=== PATIENT | female | born 1985 | race Caucasian/White ===

== ENCOUNTER 2019-10-28 13:23 | Observation (INO) | payer OTHER ==
[2019-10-28] MEDS ORDERED: KETOROLAC 30 MG/ML 1 ML VIAL IVP STA (14:11)
[2019-10-28] MEDS ORDERED: SODIUM CHLORIDE 0.9% 1,000 ML IV STA (14:11)
--- NOTE | 2019-10-28 14:24 | ED ---
General Adult HPI - General Chief complaint: Recheck/Abnormal Lab/Rx Stated complaint: Leg swelling, unable to urinate Time Seen by Provider: 10/28/19 13:59 Source: patient Mode of arrival: ambulatory Limitations: no limitations - History of Present Illness Initial comments: Patient is a 34-year-old female presenting to emergency Department with complai nts of lower leg swelling as well as abdominal pain and swelling for the past 2 days. Patient states she is an alcoholic and recently tried to stop drinking on her own. Patient states about 3-4 days ago she went to [facility] secondary to belly pain and was given a few prescriptions and was sent to [place]. Patient states the past few days both of her legs have begun to swell as well as her abdomen. She is also having right sided abdominal pain that is referred to her back. Patient states she has not been able to urinate since early this morning. She has been drinking water but still not able to urinate. Patient denies fever, vomiting, diarrhea. Patient states she does feel very weak. She denies any urinary complaints such as burning or frequency. She denies any history of abdominal surgeries. Her last bowel movement was yesterday was normal. She has no other complaints at this time. Upon arrival to the ER, vital signs are stable. - Related Data Allergies Allergy/AdvReac Type Severity Reaction Status Date / Time No Known Allergies Allergy Verified 10/28/19 13:29 Review of Systems ROS Statement: Those systems with pertinent positive or pertinent negative responses have been documented in the HPI. ROS Other: All systems not noted in ROS Statement are negative. Past Medical History Past Medical History: No Reported History History of Any Multi-Drug Resistant Organisms: None Reported Past Surgical History: Hernia Repair, Orthopedic Surgery Additional Past Surgical History / Comment(s): cyst removal Past Psychological History: No Psychological Hx Reported Smoking Status: Current every day smoker Past Alcohol Use History: Abuse Past Drug Use History: Marijuana General Exam - General Exam Comments Initial Comments: GENERAL: Patient appears fatigued, pain now, no acute distress. HEAD: Atraumatic, normocephalic. EYES: Pupils equal round and reactive to light, extraocular movements intact, sclera anicteric, conjunctiva are normal. ENT: TMs normal, nares patent, oropharynx clear without exudates. Moist mucous membranes. NECK: Normal range of motion, supple without lymphadenopathy or JVD. LUNGS: Breath sounds clear to auscultation bilaterally and equal. No wheezes rales or rhonchi. HEART: Regular rate and rhythm without murmurs, rubs or gallops. ABDOMEN: Severe tenderness to palpation right upper quadrant as well as right flank area. Abdomen appears slightly distended. Normoactive bowel sounds. No guarding, no rebound. No masses appreciated. : Deferred EXTREMITIES: Normal range of motion. No clubbing or cyanosis. Mild bilateral lower leg edema, no pitting edema. NEUROLOGICAL: Normal speech, normal gait. PSYCH: Normal mood, normal affect. SKIN: Warm, Dry, normal turgor, no rashes or lesions noted. Limitations: no limitations Course Vital Signs 10/28/19 13:27 Temperature 97.8 F Pulse Rate 81 Respiratory 18 Rate Blood Pressure 106/71 O2 Sat by Pulse 98 Oximetry Medical Decision Making - Medical Decision Making Patient is a 34-year-old female presenting with lower leg edema as well as abdominal swelling for the past 2 days. She is also not been able to urinate al l day today. Vital signs are stable upon arrival. Lab work reveals a total bilirubin of 4.3, AST is 93. Lipase is normal. Urine has 2+ bilirubins. Ultrasound of the liver shows solid appearing material within the gallbladder as well as thickening. Pericholeystic fluid, correlate for acute cholecystitis. I discussed these findings with the patient. She will be admitted for surgery consult and will be started on antibiotics. We will continue with pain control. She is in agreement with this plan of care. Dr. Ferro accepted the patient. Case discussed with Dr. Heard. - Lab Data Result diagrams: 10/28/19 14:30 10/28/19 14:30 Lab Results 10/28/19 10/28/19 10/28/19 Range/Units 14:30 14:30 14:30 WBC 4.1 (3.8-10.6) k/uL RBC 3.28 L (3.80-5.40) m/uL Hgb 11.2 L (11.4-16.0) gm/dL Hct 33.8 L (34.0-46.0) % MCV 103.0 H (80.0-100.0) fL MCH 34.1 (25.0-35.0) pg MCHC 33.1 (31.0-37.0) g/dL RDW 15.1 (11.5-15.5) % Plt Count 190 (150-450) k/uL Neutrophils % (Manual) 44 % Band Neutrophils % 1 % Lymphocytes % (Manual) 45 % Monocytes % (Manual) 8 % Eosinophils % (Manual) 2 % Neutrophils # (Manual) 1.80 (1.3-7.7) k/uL Lymphocytes # (Manual) 1.85 (1.0-4.8) k/uL Monocytes # (Manual) 0.33 (0-1.0) k/uL Eosinophils # (Manual) 0.08 (0-0.7) k/uL Nucleated RBCs 0 (0-0) /100 WBC Manual Slide Review Performed Polychromasia Present Macrocytosis Slight Target Cells Present PT 12.0 (9.0-12.0) sec INR 1.2 H (<1.2) APTT 22.9 (22.0-30.0) sec Sodium 136 L (137-145) mmol/L Potassium 4.0 (3.5-5.1) mmol/L Chloride 102 (98-107) mmol/L Carbon Dioxide 28 (22-30) mmol/L Anion Gap 6 mmol/L BUN 4 L (7-17) mg/dL Creatinine 0.46 L (0.52-1.04) mg/dL Est GFR (CKD-EPI)AfAm >90 (>60 ml/min/1.73 sqM) Est GFR (CKD-EPI)NonAf >90 (>60 ml/min/1.73 sqM) Glucose 94 (74-99) mg/dL Calcium 8.4 (8.4-10.2) mg/dL Magnesium 1.9 (1.6-2.3) mg/dL Total Bilirubin 4.3 H (0.2-1.3) mg/dL AST 93 H (14-36) U/L ALT 29 (4-34) U/L Alkaline Phosphatase 111 (38-126) U/L Total Protein 6.4 (6.3-8.2) g/dL Albumin 3.0 L (3.5-5.0) g/dL Amylase <30 L (30-110) U/L Lipase 68 (23-300) U/L Urine Color Urine Appearance (Clear) Urine pH (5.0-8.0) Ur Specific [place] (1.001-1.035) Urine Protein (Negative) Urine Glucose (UA) (Negative) Urine Ketones (Negative) Urine Blood (Negative) Urine Nitrite (Negative) Urine Bilirubin (Negative) Urine Urobilinogen (<2.0) mg/dL Ur Leukocyte Esterase (Negative) Urine RBC (0-5) /hpf Urine WBC (0-5) /hpf Ur Squamous Epith Cells (0-4) /hpf Hyaline Casts (0-2) /lpf Urine Mucus (None) /hpf Urine HCG, Qual (Not Detectd) 10/28/19 10/28/19 Range/Units 16:41 16:41 WBC (3.8-10.6) k/uL RBC (3.80-5.40) m/uL Hgb (11.4-16.0) gm/dL Hct (34.0-46.0) % MCV (80.0-100.0) fL MCH (25.0-35.0) pg MCHC (31.0-37.0) g/dL RDW (11.5-15.5) % Plt Count (150-450) k/uL Neutrophils % (Manual) % Band Neutrophils % % Lymphocytes % (Manual) % Monocytes % (Manual) % Eosinophils % (Manual) % Neutrophils # (Manual) (1.3-7.7) k/uL Lymphocytes # (Manual) (1.0-4.8) k/uL Monocytes # (Manual) (0-1.0) k/uL Eosinophils # (Manual) (0-0.7) k/uL Nucleated RBCs (0-0) /100 WBC Manual Slide Review Polychromasia Macrocytosis Target Cells PT (9.0-12.0) sec INR (<1.2) APTT (22.0-30.0) sec Sodium (137-145) mmol/L Potassium (3.5-5.1) mmol/L Chloride (98-107) mmol/L Carbon Dioxide (22-30) mmol/L Anion Gap mmol/L BUN (7-17) mg/dL Creatinine (0.52-1.04) mg/dL Est GFR (CKD-EPI)AfAm (>60 ml/min/1.73 sqM) Est GFR (CKD-EPI)NonAf (>60 ml/min/1.73 sqM) Glucose (74-99) mg/dL Calcium (8.4-10.2) mg/dL Magnesium (1.6-2.3) mg/dL Total Bilirubin (0.2-1.3) mg/dL AST (14-36) U/L ALT (4-34) U/L Alkaline Phosphatase (38-126) U/L Total Protein (6.3-8.2) g/dL Albumin (3.5-5.0) g/dL Amylase (30-110) U/L Lipase (23-300) U/L Urine Color Dark Brown Urine Appearance Cloudy H (Clear) Urine pH 5.5 (5.0-8.0) Ur Specific [place] 1.024 (1.001-1.035) Urine Protein 1+ H (Negative) Urine Glucose (UA) Negative (Negative) Urine Ketones Negative (Negative) Urine Blood Negative (Negative) Urine Nitrite Negative (Negative) Urine Bilirubin 2+ H (Negative) Urine Urobilinogen 3.0 (<2.0) mg/dL Ur Leukocyte Esterase Negative (Negative) Urine RBC 1 (0-5) /hpf Urine WBC 3 (0-5) /hpf Ur Squamous Epith Cells <1 (0-4) /hpf Hyaline Casts 22 H (0-2) /lpf Urine Mucus Many H (None) /hpf Urine HCG, Qual Not Detected (Not Detectd) Disposition Clinical Impression: Acute cholecystitis Disposition: ADMITTED IP TO THIS [facility] Condition: Good Is patient prescribed a controlled substance at d/c from ED?: No Referrals: None,Stated [Primary Care Provider] - 1-2 days Decision Date: 10/28/19 Decision Time: 16:54
[2019-10-28 14:57] LABS: ALT 29 U/L (4-34); AST 93 U/L (14-36); African American GFR (CKD) >90 (>60 ml/min/1.73 sqM); Alkaline Phosphatase 111 U/L (38-126); Anion Gap 6 mmol/L; Blood Urea Nitrogen 4 mg/dL (7-17); Calcium 8.4 mg/dL (8.4-10.2); Carbon Dioxide 28 mmol/L (22-30); Chloride 102 mmol/L (98-107); Glucose 94 mg/dL (74-99); Magnesium 1.9 mg/dL (1.6-2.3); Non-African American GFR(CKD) >90 (>60 ml/min/1.73 sqM); Sodium 136 mmol/L (137-145); Total Bilirubin 4.3 mg/dL (0.2-1.3); Total Protein 6.4 g/dL (6.3-8.2)
[2019-10-28 14:58] LABS: Amylase <30 U/L (30-110)
[2019-10-28 15:03] LABS: INR 1.2 (<1.2); Partial Thromboplastin Time 22.9 sec (22.0-30.0)
[2019-10-28 15:14] LABS: HCT 33.8 % (34.0-46.0); HGB 11.2 gm/dL (11.4-16.0); MCH 34.1 pg (25.0-35.0); MCHC 33.1 g/dL (31.0-37.0); Macrocytosis Slight; Mean Platelet Volume 10.7; Platelet Count 190 k/uL (150-450); RBC 3.28 m/uL (3.80-5.40); RDW 15.1 % (11.5-15.5); WBC 4.1 k/uL (3.8-10.6)
[2019-10-28 15:56] LABS: Band Neutrophils % 1 %; Eosinophils # (M) 0.08 k/uL (0-0.7); Lymphocytes # (M) 1.85 k/uL (1.0-4.8); Monocytes # (M) 0.33 k/uL (0-1.0); Neutrophils % (M) 44 %; Nucleated Red Blood Cells 0 /100 WBC (0-0); Target Cells Present; Total Cells Counted 100
[2019-10-28 15:57] LABS: Polychromasia Present
[2019-10-28] MEDS ORDERED: MORPHINE SULFATE 4 MG/ML SYRINGE IVP STA (16:09)
[2019-10-28] MEDS ORDERED: ONDANSETRON 4 MG/2 ML VIAL IVP STA (16:09)
--- NOTE | 2019-10-28 16:24 | US ---
EXAMINATION TYPE: US liver DATE OF EXAM: 10/28/2019 COMPARISON: NONE CLINICAL HISTORY: RUQ pain. EXAM MEASUREMENTS: Liver Length: 16.9 cm Gallbladder Wall: 0.9 cm CBD: 0.5 cm Right Kidney: 10.3 x 4.5 x 5.7 cm Pancreas: not well visualized Liver: difficult to penetrate. Gallbladder: thickened wall, pericholecystic fluid. Solid appearing material within gllblader. Evidence for sonographic Montero's sign: Yes CBD: wnl Right Kidney: No hydronephrosis or masses seen Incidental note of free fluid around liver. IMPRESSION: 1 solid appearing material within the gallbladder with wall thickening noted. Pericholecystic fluid a lso identified. Correlate for acute cholecystitis. 2. Probable fatty liver.
[2019-10-28 16:48] LABS: Appearance,Urine Cloudy (Clear); Bilirubin,Urine 2+ (Negative); Blood,Urine Negative (Negative); Color,Urine Dark Brown; Glucose,Urine (UA) Negative (Negative); Hyaline Casts,Urine 22 /lpf (0-2); Ketones,Urine Negative (Negative); Leukocyte Esterase,Urine Negative (Negative); Mucus,Urine Many /hpf; Nitrite,Urine Negative (Negative); PH, Urine 5.5 (5.0-8.0); Protein,Urine 1+ (Negative); RBC,Urine 1 /hpf (0-5); Specific Gravity,Urine 1.024 (1.001-1.035); Squamous Epithelial Cell,Urine <1 /hpf (0-4); WBC,Urine 3 /hpf (0-5)
[2019-10-28] MEDS ORDERED: NALOXONE 0.4 MG/ML 1 ML VIAL IV PRN (16:48)
[2019-10-28] MEDS ORDERED: ACETAMINOPHEN TAB 325 MG TAB PO PRN (16:48)
[2019-10-28] MEDS ORDERED: ONDANSETRON 4 MG/2 ML VIAL IVP PRN (16:48)
[2019-10-28] MEDS ORDERED: PIPERACILLIN-TAZOBACTAM 3.375 GM in SODIUM CHLORIDE 0.9% 100 ML IVPB STA (16:54)
[2019-10-28] MEDS: SODIUM CHLORIDE 0.9% 1,000 ML IV SCH (17:05)
[2019-10-28] MEDS ORDERED: SODIUM CHLORIDE 0.9% 500 ML 500 ML IV STA (18:05)
[2019-10-28] MEDS ORDERED: MORPHINE SULFATE 2 MG/ML SYRINGE IVP ONE (18:05)
[2019-10-28] MEDS: MORPHINE SULFATE 4 MG/ML SYRINGE IV PRN (21:35)
[2019-10-29] MEDS: PIPERACILLIN-TAZOBACTAM 3.375 GM in SODIUM CHLORIDE 0.9% 100 ML IVPB SCH ×3 (00:34→16:17)
[2019-10-29] MEDS: traMADol 50 MG TAB PO PRN ×3 (00:35→19:32)
[2019-10-29] MEDS: MORPHINE SULFATE 4 MG/ML SYRINGE IV PRN ×5 (02:27→21:32)
[2019-10-29] MEDS: SODIUM CHLORIDE 0.9% 1,000 ML IV SCH ×2 (05:37→21:00)
[2019-10-29 07:01] LABS: Basophils % (A) 1 %; Eosinophils # (A) 0.2 k/uL (0-0.7); Eosinophils % (A) 5 %; HCT 30.5 % (34.0-46.0); Hypochromasia Slight; Lymphocytes # (A) 1.4 k/uL (1.0-4.8); Lymphocytes % (A) 45 %; MCH 33.4 pg (25.0-35.0); MCHC 31.7 g/dL (31.0-37.0); MCV 105.1 fL (80.0-100.0); Macrocytosis Moderate; Mean Platelet Volume 9.5; Monocytes # (A) 0.3 k/uL (0-1.0); Monocytes % (A) 8 %; Neutrophils # (A) 1.1 k/uL (1.3-7.7); Neutrophils % (A) 37 %; Platelet Count 185 k/uL (150-450); RBC 2.91 m/uL (3.80-5.40); RDW 14.9 % (11.5-15.5); WBC 3.1 k/uL (3.8-10.6)
[2019-10-29 07:19] LABS: ALT 23 U/L (4-34); AST 81 U/L (14-36); African American GFR (CKD) >90 (>60 ml/min/1.73 sqM); Albumin 2.2 g/dL (3.5-5.0); Alkaline Phosphatase 82 U/L (38-126); Anion Gap 7 mmol/L; Blood Urea Nitrogen 3 mg/dL (7-17); Calcium 7.6 mg/dL (8.4-10.2); Carbon Dioxide 27 mmol/L (22-30); Chloride 106 mmol/L (98-107); Glucose 67 mg/dL (74-99); Non-African American GFR(CKD) >90 (>60 ml/min/1.73 sqM); Potassium 3.3 mmol/L (3.5-5.1); Sodium 140 mmol/L (137-145); Total Bilirubin 3.6 mg/dL (0.2-1.3)
[2019-10-29 07:24] LABS: HGB 9.7 gm/dL (11.4-16.0)
--- NOTE | 2019-10-29 10:19 | P.GSHP ---
History of Present Illness H&P Date: 10/29/19 Chief Complaint: abdominal pain CHIEF COMPLAINT: Abdominal pain HISTORY OF PRESENT ILLNESS: 34 year old female who presented to the ER with a chief complaint of abdominal pain. Patient reports she has been having abdominal pain on and off for the past few weeks. She initially related this pain to her liver as she has a history of alcohol abuse. Denies nausea or vomiting. Denies diarrhea or constipation. Denies fever or chills. Patient states she was recently at [facility] and underwent a medical detox. She is currently residing at [facility] for rehab. PAST MEDICAL HISTORY: See list. PAST SURGICAL HISTORY: See list. SOCIAL HISTORY: No illicit drug use. REVIEW OF SYSTEMS: CONSTITUTIONAL: Denies fever or chills. HEENT: Denies blurred vision, vision changes, or eye pain. Denies hemoptysis CARDIOVASCULAR: Denies chest pain or pressure. RESPIRATORY: No shortness of breath. GASTROINTESTINAL: Refer to HPI for pertinent findings HEMATOLOGIC: Denies bleeding disorders. GENITOURINARY: Denies any blood in urine. SKIN: Denies pruitis. Denies rash. PHYSICAL EXAM: VITAL SIGNS: Reviewed. GENERAL: Well-developed in no acute distress. HEENT: No sclera icterus. Extraocular movements grossly intact. Moist buccal mucosa. Head is atraumatic, normocephalic. ABDOMEN: Soft. Ascites present. Tenderness with palpation of right upper quadrant. NEUROLOGIC: Alert and oriented. Cranial nerves II through XII grossly intact. LABORATORY DATA: WBC 3.1. Hemoglobin 9.7. Platelet count 185. Potassium 3.3. BUN 3. Creatinine 0.54. Bilirubin 3.6. AST 81. ALT 23. IMAGING: Ultrasound liver: Solid-appearing material within the gallbladder with gallbladder wall thickening. Pericholecystic fluid present. ASSESSMENT: 1. Abdominal pain 2. Acute cholecystitis PLAN: NPO. Continue IV fluids. Continue IV antibiotics. Patient to undergo lap joel today with Dr. Ferro Nurse practitioner note has been reviewed by physician. Signing provider agrees with the documented findings, assessment, and plan of care. Past Medical History Past Medical History: No Reported History Additional Past Medical History / Comment(s): 3x hernia, cyst on cheek and behind left eye History of Any Multi-Drug Resistant Organisms: None Reported Past Surgical History: Hernia Repair, Orthopedic Surgery, Tubal Ligation Additional Past Surgical History / Comment(s): cyst removal, pins and plates in right leg Past Anesthesia/Blood Transfusion Reactions: No Reported Reaction Past Psychological History: No Psychological Hx Reported Smoking Status: Current every day smoker Past Alcohol Use History: Abuse Additional Past Alcohol Use History / Comment(s): started smoking at age 10 Past Drug Use History: Marijuana Medications and Allergies Home Medications Medication Instructions Recorded Confirmed Type Acetaminophen [Tylenol] 650 mg PO Q4H PRN 10/28/19 10/28/19 History Bisacodyl [Dulcolax] 5 mg PO BID PRN 10/28/19 10/28/19 History Chlorpheniramine Maleate 4 mg PO Q4H PRN 10/28/19 10/28/19 History [Chlor-Trimeton] Folic Acid 1 mg PO DAILY@0600 10/28/19 10/28/19 History Ibuprofen [Motrin] 600 mg PO Q6H PRN 10/28/19 10/28/19 History Loperamide [Imodium] 4 mg PO QID PRN 10/28/19 10/28/19 History Magnesium Hydroxide [Milk of 2,400 mg PO Q4H PRN 10/28/19 10/28/19 History Magnesia] Multivitamins, Thera [Multivitamin 1 tab PO DAILY@0600 10/28/19 10/28/19 History (formulary)] Ondansetron [Zofran ODT] 4 mg PO TID PRN 10/28/19 10/28/19 History Pantoprazole [Protonix] See Taper PO DIRECTED 10/28/19 10/28/19 History Thiamine [Vitamin B-1] 100 mg PO DAILY 10/28/19 10/28/19 History traZODone HCL 50 - 150 mg PO HS 10/28/19 10/28/19 History Allergies Allergy/AdvReac Type Severity Reaction Status Date / Time No Known Allergies Allergy Verified 10/28/19 18:10 Surgical - Exam Vital Signs Temp Pulse Resp BP Pulse Ox 97.8 F 81 18 106/71 98 10/28/19 13:27 10/28/19 13:27 10/28/19 13:27 10/28/19 13:27 10/28/19 13:27 Results - Labs 10/29/19 06:13 10/29/19 06:13 Abnormal Lab Results - Last 24 Hours (Table) 10/28/19 10/28/19 10/28/19 Range/Units 14:30 14:30 14:30 WBC (3.8-10.6) k/uL RBC 3.28 L (3.80-5.40) m/uL Hgb 11.2 L (11.4-16.0) gm/dL Hct 33.8 L (34.0-46.0) % MCV 103.0 H (80.0-100.0) fL Neutrophils # (1.3-7.7) k/uL INR 1.2 H (<1.2) Sodium 136 L (137-145) mmol/L Potassium (3.5-5.1) mmol/L BUN 4 L (7-17) mg/dL Creatinine 0.46 L (0.52-1.04) mg/dL Glucose (74-99) mg/dL Calcium (8.4-10.2) mg/dL Total Bilirubin 4.3 H (0.2-1.3) mg/dL AST 93 H (14-36) U/L Total Protein (6.3-8.2) g/dL Albumin 3.0 L (3.5-5.0) g/dL Amylase <30 L (30-110) U/L Urine Appearance (Clear) Urine Protein (Negative) Urine Bilirubin (Negative) Hyaline Casts (0-2) /lpf Urine Mucus (None) /hpf 10/28/19 10/29/19 10/29/19 Range/Units 16:41 06:13 06:13 WBC 3.1 L (3.8-10.6) k/uL RBC 2.91 L (3.80-5.40) m/uL Hgb 9.7 L D (11.4-16.0) gm/dL Hct 30.5 L (34.0-46.0) % MCV 105.1 H (80.0-100.0) fL Neutrophils # 1.1 L (1.3-7.7) k/uL INR (<1.2) Sodium (137-145) mmol/L Potassium 3.3 L (3.5-5.1) mmol/L BUN 3 L (7-17) mg/dL Creatinine (0.52-1.04) mg/dL Glucose 67 L (74-99) mg/dL Calcium 7.6 L (8.4-10.2) mg/dL Total Bilirubin 3.6 H (0.2-1.3) mg/dL AST 81 H (14-36) U/L Total Protein 5.0 L (6.3-8.2) g/dL Albumin 2.2 L (3.5-5.0) g/dL Amylase (30-110) U/L Urine Appearance Cloudy H (Clear) Urine Protein 1+ H (Negative) Urine Bilirubin 2+ H (Negative) Hyaline Casts 22 H (0-2) /lpf Urine Mucus Many H (None) /hpf Diabetes panel 10/28/19 10/29/19 Range/Units 14:30 06:13 Sodium 136 L 140 (137-145) mmol/L Potassium 4.0 3.3 L (3.5-5.1) mmol/L Chloride 102 106 (98-107) mmol/L Carbon Dioxide 28 27 (22-30) mmol/L BUN 4 L 3 L (7-17) mg/dL Creatinine 0.46 L 0.52 (0.52-1.04) mg/dL Glucose 94 67 L (74-99) mg/dL Calcium 8.4 7.6 L (8.4-10.2) mg/dL AST 93 H 81 H (14-36) U/L ALT 29 23 (4-34) U/L Alkaline Phosphatase 111 82 (38-126) U/L Total Protein 6.4 5.0 L (6.3-8.2) g/dL Albumin 3.0 L 2.2 L (3.5-5.0) g/dL Calcium panel 10/28/19 10/29/19 Range/Units 14:30 06:13 Calcium 8.4 7.6 L (8.4-10.2) mg/dL Albumin 3.0 L 2.2 L (3.5-5.0) g/dL Pituitary panel 10/28/19 10/29/19 Range/Units 14:30 06:13 Sodium 136 L 140 (137-145) mmol/L Potassium 4.0 3.3 L (3.5-5.1) mmol/L Chloride 102 106 (98-107) mmol/L Carbon Dioxide 28 27 (22-30) mmol/L BUN 4 L 3 L (7-17) mg/dL Creatinine 0.46 L 0.52 (0.52-1.04) mg/dL Glucose 94 67 L (74-99) mg/dL Calcium 8.4 7.6 L (8.4-10.2) mg/dL Adrenal panel 10/28/19 10/29/19 Range/Units 14:30 06:13 Sodium 136 L 140 (137-145) mmol/L Potassium 4.0 3.3 L (3.5-5.1) mmol/L Chloride 102 106 (98-107) mmol/L Carbon Dioxide 28 27 (22-30) mmol/L BUN 4 L 3 L (7-17) mg/dL Creatinine 0.46 L 0.52 (0.52-1.04) mg/dL Glucose 94 67 L (74-99) mg/dL Calcium 8.4 7.6 L (8.4-10.2) mg/dL Total Bilirubin 4.3 H 3.6 H (0.2-1.3) mg/dL AST 93 H 81 H (14-36) U/L ALT 29 23 (4-34) U/L Alkaline Phosphatase 111 82 (38-126) U/L Total Protein 6.4 5.0 L (6.3-8.2) g/dL Albumin 3.0 L 2.2 L (3.5-5.0) g/dL
[2019-10-29] MEDS ORDERED: KETOROLAC 30 MG/ML 1 ML VIAL IVP PRN (10:45)
[2019-10-29] MEDS ORDERED: Potassium Replacement Protocol 1 EACH MISC MISCELLANE PRN (11:47)
[2019-10-29] MEDS ORDERED: IV FLUID CONTINUATION 1,000 ML IV ONE (13:12)
[2019-10-29] MEDS ORDERED: DEXAMETHASONE SOD PHOSPHATE 10 MG/ML 1 ML VIAL IV ONE (13:31)
[2019-10-29] MEDS ORDERED: ONDANSETRON 4 MG/2 ML VIAL IVP ONE (13:32)
[2019-10-29] MEDS ORDERED: HEPARIN SODIUM,PORCINE 5,000 UNIT/ML 1 ML VIAL SQ ONE (13:33)
[2019-10-29] MEDS ORDERED: LACTATED RINGERS 1,000 ML IV ONE (13:37)
[2019-10-29] MEDS ORDERED: fentaNYL (PF) 50 MCG/ML 2 ML AMP IVP ONE (14:00)
--- NOTE | 2019-10-29 14:48 | P.CONS ---
History of Present Illness - Reason for Consult Sepsis - History of Present Illness 34-year-old female came in with complaints of severe sharp right upper quadrant abdominal pain along with nausea vomiting. Patient is found to have cholecystitis will undergo cholecystectomy today. Patient is an alcoholic with the drinking few weeks ago. Pending trying to cut normal smoking as well. Patient presently smokes about 2 cigarettes per day. Patient denied any fever chills does have leukocytosis patient abdominal pain is fevers although there is no rebound or rigidity patient will undergo cholecystectomy today as mentioned above Review of Systems REVIEW OF SYSTEMS: CONSTITUTIONAL: No fever, no malaise, no fatigue. HEENT: No recent visual problems or hearing problems. Denied any sore throat. CARDIOVASCULAR: No chest pain, orthopnea, PND, no palpitations, no syncope. PULMONARY: No shortness of breath, no cough, no hemoptysis. GASTROINTESTINAL: No diarrhea, no nausea, no vomiting, no abdominal pain. NEUROLOGICAL: No headaches, no weakness, no numbness. HEMATOLOGICAL: Denies any bleeding or petechiae. GENITOURINARY: Denies any burning micturition, frequency, or urgency. MUSCULOSKELETAL/RHEUMATOLOGICAL: Denies any joint pain, swelling, or any muscle pain. ENDOCRINE: Denies any polyuria or polydipsia. The rest of the 14-point review of systems is negative. Past Medical History Past Medical History: No Reported History Additional Past Medical History / Comment(s): 3x hernia, cyst on cheek and behind left eye History of Any Multi-Drug Resistant Organisms: None Reported Past Surgical History: Hernia Repair, Orthopedic Surgery, Tubal Ligation Additional Past Surgical History / Comment(s): cyst removal, pins and plates in right leg Past Anesthesia/Blood Transfusion Reactions: No Reported Reaction Past Psychological History: No Psychological Hx Reported Smoking Status: Current every day smoker Past Alcohol Use History: Abuse Additional Past Alcohol Use History / Comment(s): started smoking at age 10 Past Drug Use History: Marijuana - Past Family History Father History Unknown: Yes Medications and Allergies Home Medications Medication Instructions Recorded Confirmed Type Acetaminophen [Tylenol] 650 mg PO Q4H PRN 10/28/19 10/28/19 History Bisacodyl [Dulcolax] 5 mg PO BID PRN 10/28/19 10/28/19 History Chlorpheniramine Maleate 4 mg PO Q4H PRN 10/28/19 10/28/19 History [Chlor-Trimeton] Folic Acid 1 mg PO DAILY@0600 10/28/19 10/28/19 History Ibuprofen [Motrin] 600 mg PO Q6H PRN 10/28/19 10/28/19 History Loperamide [Imodium] 4 mg PO QID PRN 10/28/19 10/28/19 History Magnesium Hydroxide [Milk of 2,400 mg PO Q4H PRN 10/28/19 10/28/19 History Magnesia] Multivitamins, Thera [Multivitamin 1 tab PO DAILY@0600 10/28/19 10/28/19 History (formulary)] Ondansetron [Zofran ODT] 4 mg PO TID PRN 10/28/19 10/28/19 History Pantoprazole [Protonix] See Taper PO DIRECTED 10/28/19 10/28/19 History Thiamine [Vitamin B-1] 100 mg PO DAILY 10/28/19 10/28/19 History traZODone HCL 50 - 150 mg PO HS 10/28/19 10/28/19 History Allergies Allergy/AdvReac Type Severity Reaction Status Date / Time No Known Allergies Allergy Verified 10/28/19 18:10 Physical Exam Vitals: Vital Signs Temp Pulse Pulse Resp BP BP Pulse Ox 10/29/19 14:06 66 16 104/69 99 10/29/19 13:15 98.6 F 69 16 115/55 94 L 10/29/19 08:20 63 16 10/29/19 07:00 97.8 F 63 16 107/72 97 10/29/19 06:26 120/84 10/29/19 02:21 108/70 10/29/19 01:39 97.8 F 65 19 93/60 96 10/28/19 21:02 98.0 F 74 14 110/76 99 10/28/19 20:30 68 16 105/68 98 10/28/19 17:00 80 18 98/58 98 10/28/19 16:00 78 18 102/59 98 Intake and Output 10/28/19 10/29/19 10/29/19 22:59 06:59 14:59 Intake Total 50 Balance 50 Intake: IV 50 Other: # Voids 1 Weight 62.596 kg PHYSICAL EXAMINATION: GENERAL: The patient is alert and oriented x3, not in any acute distress. Well developed, well nourished. HEENT: Pupils are round and equally reacting to light. EOMI. No scleral icterus. No conjunctival pallor. Normocephalic, atraumatic. No pharyngeal erythema. No thyromegaly. CARDIOVASCULAR: S1 and S2 present. No murmurs, rubs, or gallops. PULMONARY: Chest is clear to auscultation, no wheezing or crackles. ABDOMEN: Soft, tenderness significant in the right upper quadrant and there is some diffuse tenderness as well. MUSCULOSKELETAL: No joint swelling or deformity. EXTREMITIES: No cyanosis, clubbing, or pedal edema. NEUROLOGICAL: Gross neurological examination did not reveal any focal deficits. SKIN: No rashes. Results CBC & Chem 7: 10/29/19 06:13 10/29/19 06:13 Labs: Abnormal Lab Results - Last 24 Hours (Table) 10/28/19 10/28/19 10/28/19 Range/Units 14:30 14:30 14:30 WBC (3.8-10.6) k/uL RBC 3.28 L (3.80-5.40) m/uL Hgb 11.2 L (11.4-16.0) gm/dL Hct 33.8 L (34.0-46.0) % MCV 103.0 H (80.0-100.0) fL Neutrophils # (1.3-7.7) k/uL INR 1.2 H (<1.2) Sodium 136 L (137-145) mmol/L Potassium (3.5-5.1) mmol/L BUN 4 L (7-17) mg/dL Creatinine 0.46 L (0.52-1.04) mg/dL Glucose (74-99) mg/dL Calcium (8.4-10.2) mg/dL Total Bilirubin 4.3 H (0.2-1.3) mg/dL AST 93 H (14-36) U/L Total Protein (6.3-8.2) g/dL Albumin 3.0 L (3.5-5.0) g/dL Amylase <30 L (30-110) U/L Urine Appearance (Clear) Urine Protein (Negative) Urine Bilirubin (Negative) Hyaline Casts (0-2) /lpf Urine Mucus (None) /hpf 10/28/19 10/29/19 10/29/19 Range/Units 16:41 06:13 06:13 WBC 3.1 L (3.8-10.6) k/uL RBC 2.91 L (3.80-5.40) m/uL Hgb 9.7 L D (11.4-16.0) gm/dL Hct 30.5 L (34.0-46.0) % MCV 105.1 H (80.0-100.0) fL Neutrophils # 1.1 L (1.3-7.7) k/uL INR (<1.2) Sodium (137-145) mmol/L Potassium 3.3 L (3.5-5.1) mmol/L BUN 3 L (7-17) mg/dL Creatinine (0.52-1.04) mg/dL Glucose 67 L (74-99) mg/dL Calcium 7.6 L (8.4-10.2) mg/dL Total Bilirubin 3.6 H (0.2-1.3) mg/dL AST 81 H (14-36) U/L Total Protein 5.0 L (6.3-8.2) g/dL Albumin 2.2 L (3.5-5.0) g/dL Amylase (30-110) U/L Urine Appearance Cloudy H (Clear) Urine Protein 1+ H (Negative) Urine Bilirubin 2+ H (Negative) Hyaline Casts 22 H (0-2) /lpf Urine Mucus Many H (None) /hpf Assessment and Plan Plan: -Acute cholecystitis patient regarding on Zosyn and patient will undergo cholecystectomy today. -Neutropenia secondary to sepsis -Hypokalemia natriuretic hypokalemia from IV fluids and potassium will be replaced -Nicotine abuse: And marijuana use Counseling was provided
[2019-10-29] MEDS ORDERED: fentaNYL (PF) 50 MCG/ML 2 ML AMP IV ONE (15:00)
[2019-10-29] MEDS: PANTOPRAZOLE 40 MG/10 ML VIAL IVP SCH (16:17)
[2019-10-29] MEDS: POTASSIUM CHLORIDE ER 20 MEQ TAB.ER PO SCH (17:49)
[2019-10-30] MEDS: diphenhydrAMINE 25 MG CAP PO PRN (00:03)
[2019-10-30] MEDS: PIPERACILLIN-TAZOBACTAM 3.375 GM in SODIUM CHLORIDE 0.9% 100 ML IVPB SCH ×4 (00:13→23:21)
[2019-10-30] MEDS: MORPHINE SULFATE 4 MG/ML SYRINGE IV PRN ×2 (02:02→06:29)
[2019-10-30] MEDS: PANTOPRAZOLE 40 MG/10 ML VIAL IVP SCH (06:55)
[2019-10-30] MEDS: SODIUM CHLORIDE 0.9% 1,000 ML IV SCH (06:56)
[2019-10-30 07:02] LABS: Basophils % (A) 1 %; Eosinophils # (A) 0.1 k/uL (0-0.7); Eosinophils % (A) 2 %; HCT 34.3 % (34.0-46.0); Hypochromasia Slight; Lymphocytes # (A) 1.4 k/uL (1.0-4.8); Lymphocytes % (A) 30 %; MCH 33.9 pg (25.0-35.0); MCV 105.7 fL (80.0-100.0); Macrocytosis Moderate; Mean Platelet Volume 9.9; Monocytes # (A) 0.4 k/uL (0-1.0); Monocytes % (A) 8 %; Neutrophils # (A) 2.6 k/uL (1.3-7.7); Neutrophils % (A) 57 %; Platelet Count 246 k/uL (150-450); RBC 3.25 m/uL (3.80-5.40); RDW 14.8 % (11.5-15.5); WBC 4.5 k/uL (3.8-10.6)
[2019-10-30 07:13] LABS: ALT 26 U/L (4-34); AST 100 U/L (14-36); African American GFR (CKD) >90 (>60 ml/min/1.73 sqM); Albumin 2.3 g/dL (3.5-5.0); Alkaline Phosphatase 105 U/L (38-126); Anion Gap 4 mmol/L; Blood Urea Nitrogen 4 mg/dL (7-17); Carbon Dioxide 29 mmol/L (22-30); Chloride 105 mmol/L (98-107); Glucose 82 mg/dL (74-99); Non-African American GFR(CKD) >90 (>60 ml/min/1.73 sqM); Potassium 4.4 mmol/L (3.5-5.1); Sodium 138 mmol/L (137-145); Total Bilirubin 2.9 mg/dL (0.2-1.3); Total Protein 5.4 g/dL (6.3-8.2)
[2019-10-30] MEDS: traMADol 50 MG TAB PO PRN ×2 (07:43→14:46)
[2019-10-30] MEDS ORDERED: IV FLUID CONTINUATION 450 ML IV ONE (09:44)
[2019-10-30] MEDS ORDERED: fentaNYL (PF) 50 MCG/ML 2 ML AMP IV ONE ×2 (09:58→10:07)
[2019-10-30] MEDS ORDERED: ROCURONIUM BROMIDE 10 MG/ML 5 ML VIAL IV ONE (11:18)
[2019-10-30] MEDS ORDERED: GLYCOPYRROLATE 0.2 MG/ML 2 ML VIAL ONE (11:18)
[2019-10-30] MEDS ORDERED: PROPOFOL 10 MG/ML 20 ML VIAL IV ONE (11:18)
[2019-10-30] MEDS ORDERED: KETOROLAC 30 MG/ML 1 ML VIAL ONE (11:18)
[2019-10-30] MEDS ORDERED: LIDOCAINE 1% INJ 10MG/ML (20 ML MDV) ONE (11:18)
[2019-10-30] MEDS ORDERED: MIDAZOLAM 2 MG/2 ML VIAL ONE (11:18)
[2019-10-30] MEDS ORDERED: HYDROmorphone (PF) 1 MG/ML ONE (11:18)
[2019-10-30] MEDS ORDERED: NEOSTIGMINE 1 MG/ML 10 ML VIAL ONE (11:18)
[2019-10-30] MEDS ORDERED: fentaNYL (PF) 50 MCG/ML 2 ML AMP ONE (11:18)
[2019-10-30] MEDS ORDERED: BUPIVACAINE (PF) 0.25% 30 ML VIAL SQ ONE (11:32)
[2019-10-30] MEDS ORDERED: LACTATED RINGERS 1,000 ML IV ONE (11:45)
--- NOTE | 2019-10-30 12:03 | P.OP ---
Date of Procedure: 10/30/19 Preoperative Diagnosis: Cholecystitis Postoperative Diagnosis: Cholecystitis Procedure(s) Performed: Laparoscopic cholecystectomy Anesthesia: DEB Surgeon: Dayton Ferro Pathology: other (Gallbladder) Condition: stable Disposition: PACU Description of Procedure: The patient was placed on the operating table. The patient received a general endotracheal tube anesthesia. The patients abdomen was prepped and draped in the usual sterile fashion. Through an infraumbilical stab incision, the fascia of the anterior abdominal wall was grasped with a pair of Kochers and then the Veress needle was placed in the peritoneal cavity. Position of the Veress needle was confirmed with positive drop test. The abdomen was then insufflated. After adequate insufflation, the 10 mm trocar was placed in the peritoneal cavity. Following this the laparoscope was placed in the peritoneal cavity. The patient was placed in the head-up, right side up position and then a 5 mm trocar was placed in the right lateral and right subcostal position under direct visualization. A 8 mm trocar was placed in the epigastric position. There is bilious ascites in the abdomen. Approximately 1 L of ascites was aspirated prior to starting the cholecystectomy. The gallbladder was grasped in the fundus and infundibulum. Traction on the gallbladder was placed in the lateral and the cephalad positions. The triangle of Calot was visualized.. The cystic duct was bluntly dissected until the union of the cystic duct and common bile duct was seen. A critical view of safety was achieved. The cystic duct was then divided and sealed with the Harmonic scissors. A PDS Endoloop was then placed throughout the cystic duct stump. The cystic artery divided and sealed with the Harmonic scissors. The gallbladder was then removed from the liver bed using Harmonic scissors. The gallbladder was then extracted through the epigastric port site. Operative field was checked for any bleeding spots and Harmonic scissors was used to coagulate the liver bed. The abdomen was irrigated. The trocars were removed. The skin was closed using interrupted 3-0 Vicryl suture. Dermabond dressing were applied. The patient tolerated the procedure well.
[2019-10-30] MEDS ORDERED: ONDANSETRON 4 MG/2 ML VIAL IVP ONE (12:27)
[2019-10-30] MEDS ORDERED: HYDROmorphone 1 MG/ML 1 ML SYRINGE IVP ONE ×2 (12:34→12:40)
[2019-10-30] MEDS ORDERED: HYDROmorphone 0.5 MG/0.5 ML SYRINGE IVP ONE (13:02)
--- NOTE | 2019-10-30 13:59 | P.PN ---
Subjective Progress Note Date: 10/30/19 Principal diagnosis: 34-year-old female came in with complaints of severe sharp right upper quadrant abdominal pain along with nausea vomiting. Patient is found to have cholecysti tis will undergo cholecystectomy today. Patient is an alcoholic with the drinking few weeks ago. Pending trying to cut normal smoking as well. Patient presently smokes about 2 cigarettes per day. Patient denied any fever chills does have leukocytosis patient abdominal pain is fevers although there is no rebound or rigidity patient will undergo cholecystectomy today as mentioned above 10/30/2019 Patient is being brought down for cholecystectomy with Dr. Ferro today as her surgery was postponed due to emergencies yesterday. No acute overnight issues. Will await report. Will continue to follow along closely with surgery. Objective - Vital Signs Vital signs: Vital Signs Temp 98 F 10/30/19 12:08 Pulse 68 10/30/19 12:50 Resp 16 10/30/19 12:50 BP 105/57 10/30/19 12:50 Pulse Ox 97 10/30/19 12:50 Intake & Output 10/29/19 10/30/19 10/30/19 18:59 06:59 18:59 Intake Total 1072 750 Output Total 10 Balance 1072 740 Intake: IV 850 750 Oral 222 Output: Estimated Blood Loss 10 Other: # Voids 2 - Exam GENERAL: The patient is alert and oriented x3, not in any acute distress. Well developed, well nourished. HEENT: Pupils are round and equally reacting to light. EOMI. No scleral icterus. No conjunctival pallor. Normocephalic, atraumatic. No pharyngeal erythema. No thyromegaly. CARDIOVASCULAR: S1 and S2 present. No murmurs, rubs, or gallops. PULMONARY: Chest is clear to auscultation, no wheezing or crackles. ABDOMEN: Soft, tenderness significant in the right upper quadrant and there is some diffuse tenderness as well. MUSCULOSKELETAL: No joint swelling or deformity. EXTREMITIES: No cyanosis, clubbing, or pedal edema. NEUROLOGICAL: Gross neurological examination did not reveal any focal deficits. SKIN: No rashes. - Labs CBC & Chem 7: 10/30/19 06:20 10/30/19 06:20 Labs: Abnormal Lab Results - Last 24 Hours (Table) 01/16/20 01/16/20 Range/Units 06:20 06:20 RBC 3.25 L (3.80-5.40) m/uL Hgb 11.0 L (11.4-16.0) gm/dL MCV 105.7 H (80.0-100.0) fL BUN 4 L (7-17) mg/dL Creatinine 0.46 L (0.52-1.04) mg/dL Calcium 8.0 L (8.4-10.2) mg/dL Total Bilirubin 2.9 H (0.2-1.3) mg/dL AST 100 H (14-36) U/L Total Protein 5.4 L (6.3-8.2) g/dL Albumin 2.3 L (3.5-5.0) g/dL Assessment and Plan Assessment: -Acute cholecystitis patient remaining on Zosyn at this time. patient is undergoing cholecystectomy today as hers was rescheduled due to emergencies yesterday. -Neutropenia secondary to sepsis. WBC is 4.5 today -Hypokalemia natriuretic hypokalemia from IV fluids and potassium will be replaced. Current potassium is 4.4 -Nicotine abuse: And marijuana use Counseling was provided
[2019-10-30] MEDS: HYDROmorphone 1 MG/ML 1 ML SYRINGE IVP PRN ×3 (15:23→20:46)
[2019-10-30] MEDS: HYDROcodone/APAP 5-325MG 1 EACH TAB PO PRN (19:55)
--- NOTE | 2019-10-30 21:19 | P.CONS ---
History of Present Illness - Reason for Consult Consult date: 10/30/19 Cholecystitis Requesting physician: Sarah Dia - Chief Complaint Abdominal pain - History of Present Illness 34-year-old female with a known history of alcohol abuse who presented to the hospital with complaints of abdominal pain and distention. Per the patient she was recently admitted to [facility] where she was evaluated for symptoms of lethargy. Subsequently she was discharged to [place] for alcohol rehabilitation. She reports 2 days of severe epigastric abdominal pain. She reports that pain was in the epigastric region and right upper quadrant of her abdomen and described as sharp and aching with radiation into her back. She reports associated nausea and vomiting. She reports no prior episodes of pain is severe she experienced with her current episode, the most common or pain she is a result as with kidney stones in the past. She presented to the hospital where ultrasound was performed with findings of a fatty liver as well as suspected cholecystitis. Laboratory evaluation on presentation was significant for a WBC 4.5, hemoglobin 11, platelet count 246,000, total bilirubin 2.9, alkaline phosphatase 105, AST 100 and ALT 26. Patient was taken for a cholecystectomy today and is seen in the postop setting lying in bed reporting from bedside. Review of Systems REVIEW OF SYSTEMS: CONSTITUTIONAL: Denies any fevers, chills, weight change or fatigue. CARDIOVASCULAR: Denies any chest pain, palpitations high or low blood pressures RESPIRATORY: Denies any shortness of breath, hemoptysis or cough. GENITOURINARY: No dysuria or hematuria. MUSCULOSKELETAL: No weakness reported. SKIN: Denies any new rashes or lesions, jaundice or pallor. PSYCHIATRIC: Denies any depression or anxiety, known history of alcohol abuse. NEUROLOGY: Denies headache, denies any new focal deficits. EARS/NOSE/THROAT: No recent hearing change, congestion, nasal discharge or sore throat. EYES: No pain in eyes, discharge or change in vision. GASTROINTESTINAL: As per HPI. Past Medical History Past Medical History: No Reported History Additional Past Medical History / Comment(s): 3x hernia, cyst on cheek and behind left eye History of Any Multi-Drug Resistant Organisms: None Reported Past Surgical History: Hernia Repair, Orthopedic Surgery, Tubal Ligation Additional Past Surgical History / Comment(s): cyst removal, pins and plates in right leg Past Anesthesia/Blood Transfusion Reactions: No Reported Reaction Past Psychological History: No Psychological Hx Reported Smoking Status: Current every day smoker Past Alcohol Use History: Abuse Additional Past Alcohol Use History / Comment(s): started smoking at age 10 Past Drug Use History: Marijuana - Past Family History Father History Unknown: Yes Medications and Allergies Home Medications Medication Instructions Recorded Confirmed Type Acetaminophen [Tylenol] 650 mg PO Q4H PRN 10/28/19 10/28/19 History Bisacodyl [Dulcolax] 5 mg PO BID PRN 10/28/19 10/28/19 History Chlorpheniramine Maleate 4 mg PO Q4H PRN 10/28/19 10/28/19 History [Chlor-Trimeton] Folic Acid 1 mg PO DAILY@0600 10/28/19 10/28/19 History Ibuprofen [Motrin] 600 mg PO Q6H PRN 10/28/19 10/28/19 History Loperamide [Imodium] 4 mg PO QID PRN 10/28/19 10/28/19 History Magnesium Hydroxide [Milk of 2,400 mg PO Q4H PRN 10/28/19 10/28/19 History Magnesia] Multivitamins, Thera [Multivitamin 1 tab PO DAILY@0600 10/28/19 10/28/19 History (formulary)] Ondansetron [Zofran ODT] 4 mg PO TID PRN 10/28/19 10/28/19 History Pantoprazole [Protonix] See Taper PO DIRECTED 10/28/19 10/28/19 History Thiamine [Vitamin B-1] 100 mg PO DAILY 10/28/19 10/28/19 History traZODone HCL 50 - 150 mg PO HS 10/28/19 10/28/19 History Hydrocodone/Acetaminophen [[place] 1 tab PO Q6HR PRN 3 Days #12 tab 10/30/19 Rx 5-325] Allergies Allergy/AdvReac Type Severity Reaction Status Date / Time No Known Allergies Allergy Verified 10/28/19 18:10 Physical Exam Vitals: Vital Signs Temp Pulse Pulse Resp BP BP Pulse Ox 10/30/19 15:00 68 93/45 10/30/19 14:45 72 84/45 10/30/19 12:50 68 16 105/57 97 10/30/19 12:35 70 16 102/57 96 10/30/19 12:20 76 16 109/52 98 10/30/19 12:08 98 F 83 16 113/60 94 L 10/30/19 10:15 80 16 97/49 94 L 10/30/19 09:50 98.1 F 81 18 102/59 96 10/30/19 08:00 16 10/30/19 07:00 97.9 F 70 16 96/62 96 10/30/19 06:32 104/68 10/30/19 02:00 104/69 10/30/19 01:57 97.8 F 55 L 18 91/56 98 Intake and Output 10/30/19 10/30/19 10/30/19 06:59 14:59 22:59 Intake Total 750 236 Output Total 10 Balance 740 236 Intake: IV 750 Oral 236 Output: Estimated Blood Loss 10 Other: # Voids 2 On physical examination, patient appears comfortable in no apparent distress. HEAD: Normocephalic, atraumatic. EYES: No scleral icterus. No conjunctival injection. MOUTH: No lesions, tongue midline. NECK: Trachea midline, no gross abnormalities. CHEST: Clear to auscultation with no wheezing or rhonchi appreciated. HEART: Regular rate and rhythm. ABDOMEN: Soft, appropriately tender to palpation status post cholecystectomy. Bowel sounds are positive. No organomegaly. No guarding or rigidity. EXTREMITIES: No pedal edema. SKIN: No rashes, no jaundice. NEUROLOGIC: Alert and oriented x3. No focal deficits. Results CBC & Chem 7: 10/30/19 06:20 10/30/19 06:20 Labs: Abnormal Lab Results - Last 24 Hours (Table) 10/30/19 10/30/19 Range/Units 06:20 06:20 RBC 3.25 L (3.80-5.40) m/uL Hgb 11.0 L (11.4-16.0) gm/dL MCV 105.7 H (80.0-100.0) fL BUN 4 L (7-17) mg/dL Creatinine 0.46 L (0.52-1.04) mg/dL Calcium 8.0 L (8.4-10.2) mg/dL Total Bilirubin 2.9 H (0.2-1.3) mg/dL AST 100 H (14-36) U/L Total Protein 5.4 L (6.3-8.2) g/dL Albumin 2.3 L (3.5-5.0) g/dL US - abdomen: report reviewed (Ultrasound abdomen with findings of hepatic steatosis and gallbladder wall thickening suggestive of acute cholecystitis) Assessment and Plan (1) Elevated liver enzymes Narrative/Plan: 34-year-old female presenting to the hospital with complaints of abdominal pain found to have acute cholecystitis status post laparoscopic cholecystectomy. Patient found to have elevated liver enzymes which are likely multifactorial in the setting of alcohol abuse, and cholecystitis. Current Visit: Yes Status: Acute Code(s): R74.8 - ABNORMAL LEVELS OF OTHER SERUM ENZYMES SNOMED Code(s): 412375612 (2) Acute cholecystitis Current Visit: Yes Status: Acute Code(s): K81.0 - ACUTE CHOLECYSTITIS SNOMED Code(s): 36621051 Plan: Supportive care Continue to monitor CBC, CMP and Advance diet as tolerated Continue antibiotic therapy Alcohol abstinence Thank you for allowing us to participate in the care of the patient
[2019-10-31] MEDS: HYDROmorphone 1 MG/ML 1 ML SYRINGE IVP PRN ×3 (00:02→07:05)
[2019-10-31] MEDS: SODIUM CHLORIDE 0.9% 1,000 ML IV SCH ×3 (00:02→23:50)
[2019-10-31] MEDS: PIPERACILLIN-TAZOBACTAM 3.375 GM in SODIUM CHLORIDE 0.9% 100 ML IVPB SCH ×3 (07:07→23:46)
[2019-10-31] MEDS: PANTOPRAZOLE 40 MG/10 ML VIAL IVP SCH (07:08)
[2019-10-31 07:09] LABS: Basophils # (A) 0.1 k/uL (0-0.2); Basophils % (A) 2 %; Eosinophils # (A) 0.2 k/uL (0-0.7); Eosinophils % (A) 5 %; HCT 35.3 % (34.0-46.0); HGB 11.1 gm/dL (11.4-16.0); Hypochromasia Marked; Lymphocytes # (A) 1.5 k/uL (1.0-4.8); Lymphocytes % (A) 41 %; MCH 33.8 pg (25.0-35.0); MCHC 31.5 g/dL (31.0-37.0); MCV 107.2 fL (80.0-100.0); Macrocytosis Moderate; Mean Platelet Volume 10.3; Monocytes # (A) 0.2 k/uL (0-1.0); Monocytes % (A) 5 %; Neutrophils # (A) 1.6 k/uL (1.3-7.7); Neutrophils % (A) 44 %; Platelet Count 218 k/uL (150-450); RBC 3.29 m/uL (3.80-5.40); RDW 14.8 % (11.5-15.5); WBC 3.6 k/uL (3.8-10.6)
[2019-10-31 07:23] LABS: ALT 36 U/L (4-34); AST 162 U/L (14-36); African American GFR (CKD) >90 (>60 ml/min/1.73 sqM); Albumin 2.4 g/dL (3.5-5.0); Alkaline Phosphatase 116 U/L (38-126); Anion Gap 4 mmol/L; Blood Urea Nitrogen 4 mg/dL (7-17); Carbon Dioxide 28 mmol/L (22-30); Chloride 109 mmol/L (98-107); Glucose 89 mg/dL (74-99); Non-African American GFR(CKD) >90 (>60 ml/min/1.73 sqM); Sodium 141 mmol/L (137-145); Total Bilirubin 3.2 mg/dL (0.2-1.3); Total Protein 5.3 g/dL (6.3-8.2)
[2019-10-31] MEDS: HYDROcodone/APAP 5-325MG 1 EACH TAB PO PRN ×4 (08:36→20:23)
--- NOTE | 2019-10-31 10:53 | P.PN ---
Subjective Progress Note Date: 10/31/19 CHIEF COMPLAINT: Abdominal pain HISTORY OF PRESENT ILLNESS: Patient is status post laparoscopic cholecystectomy. Patient also with large amount of ascites in the abdomen and 1L of ascites fluid was aspirated prior to starting cholecystectomy. She is postoperative day #1. Patient examined at the bedside. She reports her pain is tolerable. She is tolerating diet. Denies nausea or vomiting. Patient does have ascites fluid leaking from laparoscopic sites. WBC 3.6. Hemoglobin 11.1. Bilirubin 3.2. AST 162. ALT 36. PHYSICAL EXAM: VITAL SIGNS: Reviewed. GENERAL: Well-developed in no acute distress. HEENT: No sclera icterus. Extraocular movements grossly intact. Moist buccal mucosa. Head is atraumatic, normocephalic. ABDOMEN: Soft. ascites present. Appropriate surgical tenderness. Lap sites without signs of infection-leaking ascites fluid. NEUROLOGIC: Alert and oriented. Cranial nerves II through XII grossly intact. ASSESSMENT: 1. Abdominal pain 2. Acute cholecystitis PLAN: Pain control Continue diet as tolerated Increase activity Dry gauze to draining lap sites. Change PRN Patient requesting to stay until tomorrow. Dr. Ferro agreeable to hold discharge. Anticipate discharge tomorrow back to [place]. Nurse practitioner note has been reviewed by physician. Signing provider agrees with the documented findings, assessment, and plan of care. Objective - Vital Signs Vital signs: Vital Signs Temp 97.7 F 10/31/19 07:00 Pulse 83 10/31/19 07:00 Resp 16 10/31/19 07:30 BP 103/53 10/31/19 07:00 Pulse Ox 93 L 10/31/19 07:00 Intake & Output 10/30/19 10/31/19 10/31/19 18:59 06:59 18:59 Intake Total 986 262.5 Output Total 10 Balance 976 262.5 Intake: IV 750 Intake, IV Titration 262.5 Amount Sodium Chloride 0.9% 1, 262.5 000 ml @ 75 mls/hr IV . [id number] [facility] Rx#:[id number] Oral 236 Output: Estimated Blood Loss 10 Other: Voiding Method Toilet Toilet # Voids 2 - Labs CBC & Chem 7: 10/31/19 06:22 10/31/19 06:22 Labs: Abnormal Lab Results - Last 24 Hours (Table) 10/31/19 10/31/19 Range/Units 06:22 06:22 WBC 3.6 L (3.8-10.6) k/uL RBC 3.29 L (3.80-5.40) m/uL Hgb 11.1 L (11.4-16.0) gm/dL MCV 107.2 H (80.0-100.0) fL Chloride 109 H (98-107) mmol/L BUN 4 L (7-17) mg/dL Calcium 8.0 L (8.4-10.2) mg/dL Total Bilirubin 3.2 H (0.2-1.3) mg/dL AST 162 H (14-36) U/L ALT 36 H (4-34) U/L Total Protein 5.3 L (6.3-8.2) g/dL Albumin 2.4 L (3.5-5.0) g/dL
--- NOTE | 2019-10-31 16:18 | CDI ---
Documentation Clarification Form Date: 10/31/2019 03:35:37 PM From: Marilee Greer RN, CCDS Admit Date: 10/29/2019 11:31:00 AM Patient Name: Marian Berger Visit Number: [id number] Discharge Date: ATTENTION: The Clinical Documentation Specialists (CDI) and [facility] Coding Staff appreciate your assistance in clarifying documentation. Please respond to the clarification below the line at the bottom and electronically sign. The CDI & [facility] Coding staff will review the response and follow-up if needed. Please note: Queries are made part of the Legal Health Record. If you have any questions, please contact the author of this message via ITS. Dr. Sarah Dia The patient presented with complaints of lower leg swelling and abdominal pain. In your consult on 10/29/19 and subsequent progress notes, Neutropenia secondary to sepsis is documented and clarification is needed for the clinical support for sepsis. History/Risk Factors: Alcoholic abuse Clinical Indicators: 34-year-old female present with leg swelling and abnormal lab. ER evaluation she was also having right sided abdominal pain with tenderness to palpations. Mild bilateral lower leg edema. In ER she was found to have acute cholecystitis. 10/28/19 wbc 4.1, Neutrophils 44, AST 93, Total Bilirubin 4.3 10/29/19 wbc 3.1, Neutrophils 1.1 Lactic acid: none Blood cultures: none Vitals signs on admission: 10/29/28 at 07:00, 10/29/19 at 13:15 115/55 69 16 98.6 Treatment: Zosyn 3.375 gm IV Q8 HR IV .9% @ 75 mls /hr IV 10/30/19 Laparoscopic Cholecystectomy: (per operative report bilious ascites 1 liter of ascites aspirated prior to cholecystectomy) In your professional opinion, please clarify your clinical indicators that you feel support the diagnosis of sepsis: Sepsis ruled out Sepsis (specify infection source) Other, please specify Unable to determine SIRS Criteria (2 or more of the following may indicate SIRS): -Temperature < 96.8F (36C) or > 101.0F (38.3C) -Heart Rate > 90 bpm -Respiratory Rate > 20 breaths/min or PaCO2 < 32 mmHg -White Blood Cell Count > 12,000 or < 4,000 cells/mm3 or > 10% bands -Lactate >2.0 mmol/L (>4.0 is equivalent to septic shock) (Last Revision: January 2018) Appropriate documentation is already in my note no additional documentation will be done as necessary MTDD
--- NOTE | 2019-10-31 16:35 | P.PN ---
Subjective Progress Note Date: 10/31/19 Principal diagnosis: 34-year-old female came in with complaints of severe sharp right upper quadrant abdominal pain along with nausea vomiting. Patient is found to have cholecysti tis will undergo cholecystectomy today. Patient is an alcoholic with the drinking few weeks ago. Pending trying to cut normal smoking as well. Patient presently smokes about 2 cigarettes per day. Patient denied any fever chills does have leukocytosis patient abdominal pain is fevers although there is no rebound or rigidity patient will undergo cholecystectomy today as mentioned above 10/30/2019 Patient is being brought down for cholecystectomy with Dr. Ferro today as her surgery was postponed due to emergencies yesterday. No acute overnight issues. Will await report. Will continue to follow along closely with surgery. 10/31/2019 Patient is sitting up in bed and appears to be in no acute distress. Patient underwent cholecystectomy yesterday with Dr. Ferro. Patient is currently tolerating clear liquids and denies any nausea or vomiting. Patient states that she is passing gas but no bowel movement as of yet. Currently patient denies any chest pain or shortness of breath. Patient is having some leaking from one of the incision sites from her cholecystectomy yesterday. Current dressing on my exam is dry and intact. Patient's abdomen is extremely tender upon palpati on. Positive bowel sounds heard. Patient was at [place] [facility] for alcohol rehab and would like to return there upon discharge for continued rehab. Objective - Vital Signs Vital signs: Vital Signs Temp 99.3 F 10/31/19 15:00 Pulse 78 10/31/19 15:00 Resp 16 10/31/19 15:00 BP 99/66 10/31/19 15:00 Pulse Ox 97 10/31/19 15:00 Intake & Output 10/30/19 10/31/19 10/31/19 18:59 06:59 18:59 Intake Total 986 262.5 Output Total 10 Balance 976 262.5 Intake: IV 750 Intake, IV Titration 262.5 Amount Sodium Chloride 0.9% 1, 262.5 000 ml @ 75 mls/hr IV . [id number] [facility] Rx#:[id number] Oral 236 Output: Estimated Blood Loss 10 Other: Voiding Method Toilet Toilet # Voids 2 - Exam GENERAL: The patient is alert and oriented x3, not in any acute distress. Well developed, well nourished. HEENT: Pupils are round and equally reacting to light. EOMI. No scleral icterus. No conjunctival pallor. Normocephalic, atraumatic. No pharyngeal erythema. No thyromegaly. CARDIOVASCULAR: S1 and S2 present. No murmurs, rubs, or gallops. PULMONARY: Chest is clear to auscultation, no wheezing or crackles. ABDOMEN: Soft, tenderness significant in the right upper and lower quadrant and there is some diffuse tenderness as well. 3 Surgical incisions noted of which the one on the right side is dry and intact and the 2 midline incisions appear to be draining serous fluid. Current dressing is dry and intact upon my exam MUSCULOSKELETAL: No joint swelling or deformity. EXTREMITIES: No cyanosis, clubbing, or pedal edema. NEUROLOGICAL: Gross neurological examination did not reveal any focal deficits. SKIN: No rashes. - Labs CBC & Chem 7: 10/31/19 06:22 10/31/19 06:22 Labs: Abnormal Lab Results - Last 24 Hours (Table) 10/31/19 10/31/19 Range/Units 06:22 06:22 WBC 3.6 L (3.8-10.6) k/uL RBC 3.29 L (3.80-5.40) m/uL Hgb 11.1 L (11.4-16.0) gm/dL MCV 107.2 H (80.0-100.0) fL Chloride 109 H (98-107) mmol/L BUN 4 L (7-17) mg/dL Calcium 8.0 L (8.4-10.2) mg/dL Total Bilirubin 3.2 H (0.2-1.3) mg/dL AST 162 H (14-36) U/L ALT 36 H (4-34) U/L Total Protein 5.3 L (6.3-8.2) g/dL Albumin 2.4 L (3.5-5.0) g/dL Assessment and Plan Assessment: -Acute cholecystitis patient remaining on Zosyn at this time. patient is underwent cholecystectomy yesterday. -Neutropenia secondary to sepsis. WBC is 3.6 today -Hypokalemia natriuretic hypokalemia from IV fluids and potassium will be replaced. Current potassium is 5.0 -Nicotine abuse: And marijuana use Counseling was provided
[2019-10-31] MEDS: diphenhydrAMINE 25 MG CAP PO PRN (20:23)
[2019-10-31] MEDS: MORPHINE SULFATE 4 MG/ML SYRINGE IV PRN (23:40)
--- NOTE | 2019-10-31 23:55 | P.PN ---
Subjective Progress Note Date: 10/31/19 Principal diagnosis: Abdominal pain, acute cholecystitis Patient seen lying in bed reporting that she is tolerating diet. Abdominal pain improved. No nausea or vomiting. Objective - Vital Signs Vital signs: Vital Signs Temp 97.7 F 10/31/19 07:00 Pulse 83 10/31/19 07:00 Resp 16 10/31/19 07:30 BP 103/53 10/31/19 07:00 Pulse Ox 93 L 10/31/19 07:00 Intake & Output 10/30/19 10/31/19 10/31/19 18:59 06:59 18:59 Intake Total 986 262.5 Output Total 10 Balance 976 262.5 Intake: IV 750 Intake, IV Titration 262.5 Amount Sodium Chloride 0.9% 1, 262.5 000 ml @ 75 mls/hr IV . [id number] [facility] Rx#:[id number] Oral 236 Output: Estimated Blood Loss 10 Other: Voiding Method Toilet Toilet # Voids 2 - Exam On physical examination, patient appears comfortable in no apparent distress. HEAD: Normocephalic, atraumatic. EYES: No scleral icterus. No conjunctival injection. MOUTH: No lesions, tongue midline. NECK: Trachea midline, no gross abnormalities. CHEST: Clear to auscultation with no wheezing or rhonchi appreciated. HEART: Regular rate and rhythm. ABDOMEN: Soft, appropriately tender status post cholecystectomy. Bowel sounds are positive. No organomegaly. No guarding or rigidity. EXTREMITIES: No pedal edema. SKIN: No rashes, no jaundice. NEUROLOGIC: Alert and oriented x3. No focal deficits. - Labs CBC & Chem 7: 10/31/19 06:22 10/31/19 06:22 Labs: Abnormal Lab Results - Last 24 Hours (Table) 10/31/19 10/31/19 Range/Units 06:22 06:22 WBC 3.6 L (3.8-10.6) k/uL RBC 3.29 L (3.80-5.40) m/uL Hgb 11.1 L (11.4-16.0) gm/dL MCV 107.2 H (80.0-100.0) fL Chloride 109 H (98-107) mmol/L BUN 4 L (7-17) mg/dL Calcium 8.0 L (8.4-10.2) mg/dL Total Bilirubin 3.2 H (0.2-1.3) mg/dL AST 162 H (14-36) U/L ALT 36 H (4-34) U/L Total Protein 5.3 L (6.3-8.2) g/dL Albumin 2.4 L (3.5-5.0) g/dL Assessment and Plan (1) Elevated liver enzymes Narrative/Plan: 34-year-old female presenting to the hospital with complaints of abdominal pain found to have acute cholecystitis status post laparoscopic cholecystectomy. Patient found to have elevated liver enzymes which are likely multifactorial in the setting of alcohol abuse, and cholecystitis. Current Visit: Yes Status: Acute Code(s): R74.8 - ABNORMAL LEVELS OF OTHER SERUM ENZYMES SNOMED Code(s): 837454341 (2) Acute cholecystitis Current Visit: Yes Status: Acute Code(s): K81.0 - ACUTE CHOLECYSTITIS SNOMED Code(s): 18325530 Plan: Supportive care Continue to monitor CBC, CMP and Advance diet as tolerated Continue antibiotic therapy Alcohol abstinence Okay for discharge from gastroenterology one otherwise medically stable Thank you for allowing us to participate in the care of the patient
[2019-11-01] MEDS: HYDROcodone/APAP 5-325MG 1 EACH TAB PO PRN ×2 (01:44→07:08)
[2019-11-01] MEDS: MORPHINE SULFATE 4 MG/ML SYRINGE IV PRN ×2 (04:15→09:00)
[2019-11-01] MEDS: SODIUM CHLORIDE 0.9% 1,000 ML IV SCH (07:06)
[2019-11-01] MEDS: PIPERACILLIN-TAZOBACTAM 3.375 GM in SODIUM CHLORIDE 0.9% 100 ML IVPB SCH (07:09)
[2019-11-01] MEDS ORDERED: PANTOPRAZOLE 40 MG TABLET PO SCH (07:30)
[2019-11-01 07:44] VITALS: BP 121/77; PULSE 81; RESP 17; TEMP 98.1
[2019-11-01] MEDS ORDERED: FUROSEMIDE 10 MG/ML 2 ML VIAL IV ONE (10:39)
--- NOTE | 2019-11-01 11:51 | P.PN ---
Progress Note - Text Progress Note Date: 11/01/19 Patient still has some leakage of ascites from her umbilical trocar site. This was sutured yesterday. On exam her vital signs are stable. Her abdomen soft. Patient will be diuresed today. We will try to control her ascites medically. The patient states that she may leave the hospital and made today.
--- NOTE | 2019-11-12 13:33 | P.DS ---
Providers Date of admission: 10/29/19 11:31 Expected date of discharge: 11/01/19 Attending physician: Dayton Ferro Consults: 10/28/19 22:07 Consult Physician Routine Consulting Provider: Josefina Alicea Consult Reason/Comments: medical management Do you want consulting provider notified?: Yes Primary care physician: Stated None Hospital Course: 34 year old female who presented to the ER with a chief complaint of abdominal pain. Patient reports she has been having abdominal pain on and off for the past few weeks. She initially related this pain to her liver as she has a history of alcohol abuse. Denies nausea or vomiting. Denies diarrhea or constipation. Denies fever or chills. Patient states she was recently at [facility] and underwent a medical detox. She is currently residing at [place] for rehab. Patient underwent laparoscopic cholecystectomy with Dr. Ferro on 10/30/2019. The patient left the hospital against medical advice on 11/01/2019. ASSESSMENT: 1. Abdominal pain 2. Acute cholecystitis Nurse practitioner note has been reviewed by physician. Signing provider agrees with the documented findings, assessment, and plan of care. Patient Condition at Discharge: Stable Plan - Discharge Summary Discharge Rx Participant: Yes New Discharge Prescriptions: New Hydrocodone/Acetaminophen [[place] 5-325] 1 tab PO Q6HR PRN 3 Days #12 tab PRN Reason: Pain No Action Magnesium Hydroxide [Milk of Magnesia] 2,400 mg PO Q4H PRN PRN Reason: Constipation Loperamide [Imodium] 4 mg PO QID PRN PRN Reason: Diarrhea traZODone HCL 50 - 150 mg PO HS Ondansetron [Zofran ODT] 4 mg PO TID PRN PRN Reason: Nausea Ibuprofen [Motrin] 600 mg PO Q6H PRN PRN Reason: Fever And/ Or Pain Chlorpheniramine Maleate [Chlor-Trimeton] 4 mg PO Q4H PRN PRN Reason: ALLERGIES/ITCHING Multivitamins, Thera [Multivitamin (formulary)] 1 tab PO DAILY@0600 Acetaminophen [Tylenol] 650 mg PO Q4H PRN PRN Reason: Fever And/ Or Pain Folic Acid 1 mg PO DAILY@0600 Pantoprazole [Protonix] See Taper PO DIRECTED Thiamine [Vitamin B-1] 100 mg PO DAILY Bisacodyl [Dulcolax] 5 mg PO BID PRN PRN Reason: Constipation Discharge Medication List Acetaminophen [Tylenol] 650 mg PO Q4H PRN 10/28/19 [History] Bisacodyl [Dulcolax] 5 mg PO BID PRN 10/28/19 [History] Chlorpheniramine Maleate [Chlor-Trimeton] 4 mg PO Q4H PRN 10/28/19 [History] Folic Acid 1 mg PO DAILY@0600 10/28/19 [History] Ibuprofen [Motrin] 600 mg PO Q6H PRN 10/28/19 [History] Loperamide [Imodium] 4 mg PO QID PRN 10/28/19 [History] Magnesium Hydroxide [Milk of Magnesia] 2,400 mg PO Q4H PRN 10/28/19 [History] Multivitamins, Thera [Multivitamin (formulary)] 1 tab PO DAILY@0600 10/28/19 [History] Ondansetron [Zofran ODT] 4 mg PO TID PRN 10/28/19 [History] Pantoprazole [Protonix] See Taper PO DIRECTED 10/28/19 [History] Thiamine [Vitamin B-1] 100 mg PO DAILY 10/28/19 [History] traZODone HCL 50 - 150 mg PO HS 10/28/19 [History] Hydrocodone/Acetaminophen [[place] 5-325] 1 tab PO Q6HR PRN 3 Days #12 tab 10/30/19 [Rx] Follow up Appointment(s)/Referral(s): None,Stated [Primary Care Provider] - 1-2 days Dayton Ferro MD [STAFF PHYSICIAN] - 1 Week Activity/Diet/Wound Care/Special Instructions: No driving while taking [place] No lifting over 10 pounds You may shower. No soaking or tub baths Very light activity until you are reevaluated at your follow up appointment with your surgeon Discharge Disposition: Left Against Medical Advice
== END 2019-11-01 12:13 | disposition left against medical advice (07) ==
LOC: EC 13:23 → 4SSUR 16:46 → INTOOBSV 10-29 11:31 → OBSVTOIN 10-29 11:31 → UNDODISIN 11-01 12:13
PROVIDERS: ADMIT Surgery; ATTEND Surgery
PROC: 0FT44ZZ Resection of Gallbladder, Percutaneous Endoscopic Approach (ICD-10-PCS; principal; 2019-10-30 08:30)
DX: K81.2 Acute cholecystitis with chronic cholecystitis (principal); R18.8 Other ascites; F10.10 Alcohol abuse, uncomplicated; E87.6 Hypokalemia; D70.9 Neutropenia, unspecified; R74.8 Abnormal levels of other serum enzymes; K76.0 Fatty (change of) liver, not elsewhere classified; F17.210 Nicotine dependence, cigarettes, uncomplicated; F12.90 Cannabis use, unspecified, uncomplicated; Z87.442 Personal history of urinary calculi; Z98.890 Other specified postprocedural states; Z79.1 Long term (current) use of non-steroidal anti-inflammatories (NSAID); Z79.899 Other long term (current) drug therapy
CPT/HCPCS: 96376 ×2; 96361; 96374; 96375; 99284; 36415; 81025 ×2; 88304; 80053 ×4; 82150; 83690; 83735; 85025 ×4; 85610; 85730; 81001; 76705; 47562; G0378 ×5; J2543 ×5; J2250; J2270 ×6; J1644; J1100; J1940; J2710; J2405 ×3; J2001; J3010 ×2; J1885 ×2; J1170 ×3; J2704; C9113 ×2; 96365; 96366; 99285